=== PATIENT | female | born 1960 | race Caucasian/White ===

== ENCOUNTER → 2018-04-13 | Outpatient (CLI) | payer BC ==
--- NOTE | 2018-04-14 09:15 | CT ---
Procedure: CT LUNG SCREENING Exam Date: 04/13/2018 Ordering Provider: Jason Oliver Clinical Indication: HISTORY OF TOBACCO DEPENDENCY This patient meets eligibility criteria for low-dose CT lung cancer screening. Comparison: None. Technique: Using a multislice scanner, sequential helical axial imaging was obtained in the thorax, 2.5 mm thickness, 2.5 mm separation, from the level of the thoracic inlet through the lung bases without IV contrast. A low dose protocol was utilized: CTDI: 2.94 mGy. 120. kVp. 75 mA. DLP 116.78 mGy centimeters. 2D sagittal and coronal reconstructed images, 6.0 mm thickness, were obtained. This exam was performed according to our departmental dose optimization program which includes use of automated exposure control, adjustment of the mA and/or kV according to patient size and/or use of iterative reconstruction technique. Nodule measurements under 10 mm are given as mean value of 3 axes diameters. FINDINGS: Lungs and large airways: Small bilateral centrilobular parenchymal blebs more numerous in the upper lung taveras compared to the lower lung taveras. Pleural parenchymal scar in the inferior right middle lobe minimal posterior dependent atelectasis bilateral posterior recesses of the lower lobes. No abnormal nodules or masses bilaterally. No focal infiltrates. Pleura and space: Bilateral scattered focal pleural thickening. No effusion or pneumothorax. Mediastinum and tammie: evaluation limited by low dose technique and lack of IV contrast. No large soft tissue masses or enlarged lymph nodes. Heart and great vessels: Negative. Chest wall, lower neck, axillae: Evaluation also limited by same factors as described above. Unremarkable. Upper abdomen: Spleen and adrenal glands normal density and size. No free air or free fluid in the included peritoneal space. Osseous structures: Evaluation limited by low dose MIP technique. Minimal spondylosis in the mid thoracic spine. Narrowing of the left glenohumeral joint. IMPRESSION: 1. Early emphysematous changes in the lungs, minimal atelectasis, scarring, and scattered focal pleural thickening. No abnormal nodules, no masses, no focal infiltrates. No pleural effusion or pneumothorax. [facility] Best Practice recommendations:. Please see below for Lung RADS category and FOLLOW-UP.* *Lung RADS category Category 1 - No nodule or definitely benign nodules (probability of malignancy less than 1%). Follow-up: Continue annual screening with Low Dose Chest CT in 12 months. Electronically signed by: Dyllan Cota MD 04/14/2018 8:41 AM [facility]
== END ==
LOC: CT 08:00
PROVIDERS: ATTEND Family Medicine
DX: Z87.891 Personal history of nicotine dependence (principal)

== ENCOUNTER → 2019-04-17 | Outpatient (CLI) | payer BC, OTHER ==
--- NOTE | 2019-04-17 16:38 | CT ---
Procedure: CT LUNG SCREENING Exam Date: 17 April 2019 Ordering Provider: Jason Oliver Clinical Indication: FORMER CIGARETTE SMOKER . 2.5 years smoking cessation. 30 pack years. This patient meets eligibility criteria for low-dose CT lung cancer screening. Comparison: Low-dose CT lung cancer screening examination April 2018 Technique: Using a multislice scanner, sequential helical axial imaging was obtained in the thorax, 2.5 mm thickness, 2.5 mm separation, from the level of the thoracic inlet through the lung bases without IV contrast. A low dose protocol was utilized for BMI less than 30: BMI: 29. CTDI: 1.76 mGy. 120. kVp. 45 mA. DLP 67.4 mGy-cm. 2D sagittal and coronal reconstructed images, 6.0 mm thickness, were obtained. This exam was performed according to our departmental dose optimization program which includes use of automated exposure control, adjustment of the mA and/or kV according to patient size and/or use of iterative reconstruction technique. Nodule measurements under 10 mm are given as mean value of 3 axes diameters. FINDINGS: Lungs and large airways: Scattered small parenchymal blebs predominantly upper lung taveras bilaterally. Minimal chronic densities in the left lung base. Pleural parenchymal scarring in the bilateral upper lobes, right middle lobe and inferior lingula. No abnormal nodules and no masses. No acute infiltrates. Pleura and space: Scattered bilateral focal pleural thickening. No effusion or pneumothorax. Mediastinum and tammie: evaluation limited by low dose technique and lack of IV contrast. Tracheal bronchial cartilage calcifications otherwise negative. Stable since the prior study. Heart and great vessels: Unremarkable. Chest wall, lower neck, axillae: Evaluation also limited by same factors as described above. Bilateral mass densities versus focal asymmetries in the inferior breast parenchyma. Otherwise unremarkable. Upper abdomen: Evaluation limited by low-dose technique. No free air or free fluid. Distended gas-filled splenic flexure under the left hemidiaphragm which is elevated. Osseous structures: Evaluation limited by low dose MIP technique. Multiple levels of disc space narrowing particularly mid thoracic spine. IMPRESSION: 1. Mild emphysematous changes again seen in the upper lobes along with parenchymal pleural scarring and scattered pleural thickening. No abnormal nodules and no masses. No focal infiltrates.. [facility] Best Practice Recommendations: please see below for Lung RADS category and FOLLOW-UP.* *Lung RADS category Category 1S - No nodule or definitely benign nodules (probability of malignancy less than 1%). Follow-up: Continue annual screening with Low Dose Chest CT in 12 months. 2. Lung RADS Modifier S - Clinically Significant or Potentially Clinically Significant Findings (non lung cancer). Bilateral focal asymmetries or focal mass densities in the inferior breasts. No imaging record of breast imaging at this facility. Consider bilateral diagnostic digital breast tomosynthesis at this facility, if patient is not part of diagnostic breast imaging follow-up program at other facility. Electronically signed by: Dyllan Cota MD 04/17/2019 4:36 PM [facility]
--- NOTE | 2019-04-18 08:19 | RAD ---
EXAM DESCRIPTION: Foot,Left 3 Views: CR/DR/XR CLINICAL HISTORY: 58 years Female FOOT PAIN COMPARISON: None. TECHNIQUE: 3 VIEWS AP. Lateral. Oblique. Left foot. FINDINGS: Overall bone density is decreased, especially periarticular regions. Previous bunionectomy left great toe with minimal hallux valgus remaining. Postsurgical changes. A surgical nail visible in the distal left second metatarsal with joint space narrowing and minimal subluxation of the metatarsal phalangeal joint. Also minimal subluxation in the third metatarsal phalangeal joint. 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 No fracture. No radiodense objects in the soft tissues or joint spaces.. IMPRESSION: Overall bone density decreased. Prior left great toe bunionectomy with minimal hallux valgus. Prior ORIF left second metatarsal head with subluxation in the second and third MTP joints. Arthrosis IP joints. No acute bony abnormality. Electronically signed by: Dyllan Cota MD 04/18/2019 8:17 AM [facility]
== END ==
LOC: CT 08:00
PROVIDERS: ATTEND Family Medicine
DX: Z87.891 Personal history of nicotine dependence (principal); J43.9 Emphysema, unspecified; J94.8 Other specified pleural conditions; N64.9 Disorder of breast, unspecified; S93.145D Subluxation of metatarsophalangeal joint of left lesser toe(s), subsequent encounter; M19.072 Primary osteoarthritis, left ankle and foot; M85.872 Other specified disorders of bone density and structure, left ankle and foot; M20.12 Hallux valgus (acquired), left foot; Z98.890 Other specified postprocedural states
CPT/HCPCS: 73630; G0297

== ENCOUNTER → 2019-11-26 | Outpatient (CLI) | payer OTHER ==
--- NOTE | 2019-11-27 09:45 | RAD ---
EXAM DESCRIPTION: Knee x-ray,Left Complete three views CLINICAL HISTORY: 59 years, Female, PAIN IN LEFT KNEE COMPARISON: None TECHNIQUE: Three x-ray views of the left knee FINDINGS: Total left knee arthroplasty. Anatomic alignment of femoral and tibial components. No complicating fracture. Suprapatellar joint fluid is evident on the lateral view. Patella is normally situated. Patellar sunrise view shows slight lateral tilt but no subluxation of the patella. IMPRESSION: Total left knee arthroplasty. No complicating fracture. Electronically signed by: Arnel Wall MD 11/27/2019 9:44 AM [facility]T
== END ==
LOC: RAD 14:47
PROVIDERS: ATTEND Internal Medicine
DX: M25.562 Pain in left knee (principal); Z96.652 Presence of left artificial knee joint

== ENCOUNTER → 2020-05-07 | Outpatient (CLI) | payer OTHER ==
--- NOTE | 2020-05-07 16:31 | CT ---
Procedure: CT LUNG SCREENING Exam Date: May 07, 2020 Ordering Provider: Jason Oliver Clinical Indication: LUNG SCREEN smoking cessation x4 years. 30+ pack-years. This patient meets eligibility criteria for low-dose CT lung cancer screening. Comparison: Low-dose lung cancer screening examinations April 2019 and April 2018. Technique: Using a multislice scanner, sequential helical axial imaging was obtained in the thorax, 2.5 mm thickness, 2.5 mm separation, from the level of the thoracic inlet through the lung bases without IV contrast. A low dose protocol was utilized for BMI less than 30: BMI: 29.4. CTDI: 1.76 mGy. 120. kVp. 45 mA. DLP 72 mGy-cm. 2D sagittal and coronal reconstructed images, 6.0 mm thickness, were obtained. This exam was performed according to our departmental dose optimization program which includes use of automated exposure control, adjustment of the mA and/or kV according to patient size and/or use of iterative reconstruction technique. Nodule measurements under 10 mm are given as mean value of 3 axes diameters. FINDINGS: Lungs and large airways: Pleural parenchymal scarring right middle lobe. Decreased volume left lower lobe due to elevated left hemidiaphragm same as previous. Pleural-parenchymal scarring in the lingula stable.. Minimal parenchymal blebs upper lung taveras. No new or abnormal nodule and no lung mass. Pleura and space: Minimal thickening bilaterally. No acute process. Mediastinum and tammie: evaluation limited by low dose technique and lack of IV contrast. Acute calcifications but otherwise unremarkable and no interval change. Heart and great vessels: Minimal atherosclerotic calcification in the aortic arch. Stable. Chest wall, lower neck, axillae: Evaluation also limited by same factors as described above. Stable axillary and subclavian nodes with no dominant soft tissue masses. Upper abdomen: Evaluation limited by low-dose technique. No free air or free fluid. Also limited by lack of intra-abdominal fat. Osseous structures: Evaluation limited by low dose MIP technique. Minimal spondylosis. No significant arthrosis. IMPRESSION: Minimal emphysematous changes in bilateral pleural-parenchymal scarring stable. No new or abnormal lung nodules. No mass. No acute infiltrate.. [facility] Best Practice Recommendations: please see below for Lung RADS category and FOLLOW-UP.* *Lung RADS category Category 1 - No nodule or definitely benign nodules (probability of malignancy less than 1%). Follow-up: Continue annual screening with Low Dose Chest CT in 12 months. No film record of breast imaging at this facility dating back to 2017. If patient not currently enrolled in mammographic screening program, consider enrolling in mammographic screening program at this facility. Electronically signed by: Dyllan Cota MD 05/07/2020 4:29 PM [facility]
== END ==
LOC: CT 07:37
PROVIDERS: ATTEND Family Medicine
DX: J43.9 Emphysema, unspecified (principal); Z12.2 Encounter for screening for malignant neoplasm of respiratory organs; Z87.891 Personal history of nicotine dependence